=== PATIENT | female | born 1990 | race African-American/Black ===

== ENCOUNTER → 2017-03-25 | Outpatient (CLI) | payer OTHER ==
[2015-02-24 13:10] VITALS: BP 107/62
--- NOTE | 2017-03-25 15:49 | RAD ---
Pelvic ultrasound, 03/25/2017: History: Right lower quadrant pain Transabdominal and transvaginal scans were obtained. The uterus measures 7.4 x 5.5 x 4.0 cm. A normal central uterine echo is present, measuring 5 mm in AP dimension. The myometrial echo pattern is mildly heterogeneous. No discrete mass is seen. The ovaries are of normal size. They contain small follicular cysts. Blood flow is present in both ovaries. No adnexal mass is evident. No free fluid is identified in the pelvis. IMPRESSION: No significant abnormality is detected.
== END | disposition home or self-care (01) ==
LOC: US 15:01
PROVIDERS: ATTEND Obstetrics & Gynecology
DX: R10.31 Right lower quadrant pain (principal)
CPT/HCPCS: 76830; 76856

== ENCOUNTER 2017-10-10 13:44 | Emergency (ER) | payer OTHER ==
[~2017-10-10] VITALS: Ht 157.5 cm; Wt 72.6 kg
[2017-10-10 13:52] VITALS: BP 153/76
[2017-10-10] MEDS ORDERED: HYDROcodone/APAP 5/325MG 1 TAB TABLET PO ONE (14:00)
[2017-10-10] MEDS ORDERED: AMOX1TAB11 PO (14:09)
[2017-10-10] MEDS ORDERED: TRAM50TA PO (14:09)
--- NOTE | 2017-10-10 14:09 | PHYS DOC ---
Past Medical History Past Medical History: No Pertinent History Past Surgical History: Alcohol Use: None Drug Use: None Adult General Chief Complaint Chief Complaint: HEADACHE HPI HPI Patient is a 26 year old female presents the ED complaining of sinus headache 2 days. Describes the headache as sharp. Rates the headache as 9 out of 10. States same symptoms as previous sinus infection symptoms. Associated symptoms include rhinorrhea, sneezing, cough. Denies worst headache of life, neck pain, nausea/vomiting, abdominal pain, chest pain, shortness of breath, fever, or rash. Review of Systems Review of Systems Constitutional: Denies fever or chills [] Eyes: Denies change in visual acuity, redness, or eye pain [] HENT: Complains of congestion. Denies sore throat [] Respiratory: Complains of cough. Denies shortness of breath [] Cardiovascular: No additional information not addressed in HPI [] GI: Denies abdominal pain, nausea, vomiting, bloody stools or diarrhea [] : Denies dysuria or hematuria [] Musculoskeletal: Denies back pain or joint pain [] Integument: Denies rash or skin lesions [] Neurologic: Complains of headache. Denies focal weakness or sensory changes [] Endocrine: Denies polyuria or polydipsia [] All other systems were reviewed and found to be within normal limits, except as documented in this note. Current Medications Current Medications Current Medications Medications (Trade) Dose Ordered Sig/Alba Start Time Stop Time Status Last Admin Dose Admin Acetaminophen/ Hydrocodone Bitart (Lortab 5/325) 1 tab 1X ONCE 10/10/17 14:00 10/10/17 14:01 DC Allergies Allergies Allergies Coded Allergies Type Severity Reaction Last Updated Verified lidocaine Allergy Severe "heart racing" 02/24/15 Yes Physical Exam Physical Exam Constitutional: Well developed, well nourished, no acute distress, non-toxic appearance. [] HENT: Normocephalic, atraumatic, bilateral external ears normal, MILD MAXILLARY SINUS TENDERNESS. oropharynx moist, no oral exudates, nose normal. [] Eyes: PERRLA, EOMI, conjunctiva normal, no discharge. [] Neck: Normal range of motion, no tenderness, supple, no stridor. [] Cardiovascular:Heart rate regular rhythm, no murmur [] Lungs & Thorax: Bilateral breath sounds clear to auscultation. DRY COUGH[] Abdomen: Bowel sounds normal, soft, no tenderness, no masses, no pulsatile masses. [] Skin: Warm, dry, no erythema, no rash. [] Neurologic: Alert and oriented X 3, normal motor function, normal sensory function, no focal deficits noted. [] Psychologic: Affect normal, judgement normal, mood normal. [] Current Patient Data Vital Signs Vital Signs Date Time Temp Pulse Resp B/P (MAP) Pulse Ox O2 Delivery O2 Flow Rate FiO2 10/10/17 13:52 98.3 96 16 100 Room Air 98.3 EKG EKG [] Radiology/Procedures Radiology/Procedures [] Course & Med Decision Making Course & Med Decision Making Pertinent Labs and Imaging studies reviewed. (See chart for details) []Headache improved. Vitals stable, no acute distress. No focal neural deficits. Will discharge with Augmentin and some analgesics for pain. Discussed symptomatic treatment at home. Discussed follow-up with PCP this week. Discussed reasons to return to the ED. Patient understands and agrees with plan. Dragon Disclaimer Dragon Disclaimer This electronic medical record was generated, in whole or in part, using a voice recognition dictation system. Departure Departure Impression: Primary Impression: Sinusitis Disposition: 01 HOME, SELF-CARE Condition: IMPROVED Referrals: UNKNOWN PCP NAME (PCP) IMELDA LOPEZ MD Patient Instructions: Sinusitis Scripts Amoxicillin/Potassium Clav (AMOX TR-K CLV 875-125 MG TAB) 1 Each Tablet 1 TAB PO BID, #28 TAB Prov: LULA BREWER 10/10/17 Tramadol Hcl (TRAMADOL HCL) 50 Mg Tablet 1 TAB PO PRN Q6HRS, #12 TAB Prov: LULA BREWER 10/10/17 LULA BREWER Oct 10, 2017 14:09
== END 2017-10-10 14:21 | disposition home or self-care (01) ==
LOC: ER 13:44
DX: J32.0 Chronic maxillary sinusitis (principal); Z88.4 Allergy status to anesthetic agent
CPT/HCPCS: 99283

== ENCOUNTER 2019-01-13 11:59 | Emergency (ER) | payer OTHER ==
[~2019-01-13] VITALS: Ht 157.5 cm; Wt 72.6 kg
[~2019-01-13 11:59] MED LIST: AMOX1TAB11 PO; TRAM50TA PO
[2019-01-13] MEDS ORDERED: IV NORMAL SALINE 1000ML BAG 1,000 ML IV ONE (13:45)
[2019-01-13] MEDS ORDERED: MECLIZINE HCL 12.5 MG TABLET. PO ONE (13:45)
[2019-01-13] MEDS ORDERED: ONDANSETRON PF 4 MG/2 ML VIAL. IV ONE (13:45)
[2019-01-13 13:52] LABS: BASO % 1 % (0-3); EOS % 0 % (0-3); HEMATOCRIT 26.9 % (36.0-47.0); HEMOGLOBIN 8.2 g/dL (12.0-15.5); LYMPH % 67 % (24-48); MEAN CORPUSCULAR HEMOGLOBIN 21 pg (25-35); MEAN CORPUSCULAR HGB CONC 31 g/dL (31-37); MEAN CORPUSCULAR VOLUME 68 fL (79-100); MONO # 0.2 x10^3/uL (0.0-1.1); MONO % 5 % (0-9); NEUT # 1.2 x10^3uL (1.8-7.7); NEUT % 27 % (31-73); PLATELET COUNT 273 x10^3/uL (140-400); RED BLOOD COUNT 3.94 x10^6/uL (3.50-5.40); RED CELL DISTRIBUTION WIDTH 17.9 % (11.5-14.5); WHITE BLOOD COUNT 4.4 x10^3/uL (4.0-11.0)
[2019-01-13 13:57] LABS: BILIRUBIN,URINE NEGATIVE (NEG); COLOR,URINE YELLOW; NITRITE,URINE NEGATIVE (NEG); PH,URINE 8.5; PROTEIN,URINE NEGATIVE (NEG-TRACE); UROBILINOGEN,URINE 0.2 mg/dL (0.2 mg/dL)
[2019-01-13 13:58] LABS: CALCIUM 8.7 mg/dL (8.5-10.1); CREATININE 0.9 mg/dL (0.6-1.0); GFR 89.6
[2019-01-13 14:03] LABS: CLARITY,URINE CLEAR
[2019-01-13 14:05] LABS: ALBUMIN 3.5 g/dL (3.4-5.0); ALBUMIN/GLOBULIN RATIO 0.9 (1.0-1.7); MAGNESIUM 2.1 mg/dL (1.8-2.4); TOTAL BILIRUBIN 0.4 mg/dL (0.2-1.0); TOTAL PROTEIN 7.2 g/dL (6.4-8.2)
--- NOTE | 2019-01-13 14:29 | RAD ---
CT HEAD WO CONTRAST Indication: DIZZY, NAUSEA, NO PRIORS Exposure: One or more of the following individualized dose reduction techniques were utilized for this examination: 1. Automated exposure control 2. Adjustment of the mA and/or kV according to patient size 3. Use of iterative reconstruction technique. Findings: No acute intracranial hemorrhage, mass effect, midline shift or abnormal extra-axial fluid collection. Quinones-white matter distinction is intact. The ventricles and sulci are symmetric. The orbits are unremarkable. Partially seen paranasal sinuses are clear. No acute skull abnormality. IMPRESSION: Negative for acute intracranial hemorrhage or mass effect. Further evaluation or follow-up could be obtained with outpatient MR brain as indicated. Electronically signed by: Ady Terrell MD (01/13/2019 2:26 PM) [id number]
[2019-01-13 14:36] LABS: BACTERIA,URINE FEW /HPF (0-FEW); RBC,URINE 0 /HPF (0-2); SQUAMOUS EPITHELIAL CELL,UR FEW /LPF; TRICHOMONAS,URINE PRESENT
[2019-01-13 15:25] LABS: % BASOS 1 % (0-3); % EOS 1 % (0-5); % LYMPHS 52 % (24-48); % MONOS 4 % (0-10); % SEGS 42 % (35-66)
[2019-01-13 15:27] LABS: ANISOCYTOSIS SLIGHT; HYPOCHROMIA MARKED; MICROCYTOSIS MARKED; PLT ESTIMATE ADEQUATE (ADEQUATE); POLYCHROMASIA SLIGHT; TARGET CELLS MANY
--- NOTE | 2019-01-13 15:48 | EKG ---
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
[2019-01-13] MEDS ORDERED: MECL25TA3 PO (16:28)
[2019-01-13] MEDS ORDERED: PRED50TA PO (16:28)
--- NOTE | 2019-01-13 16:29 | PHYS DOC ---
Past Medical History Past Medical History: No Pertinent History Past Surgical History: Alcohol Use: None Drug Use: None Adult General Chief Complaint Chief Complaint: DIZZY/LIGHT HEADED HPI HPI Patient is a 28 year old AA female who presents to the emergency room with complaints of dizziness, nausea, left here ringing, and a sensation of the room spinning since approximately 8:30 this morning. She denies any vision changes, chest pain, wheezing, recent head injury, headache, weakness, difficulty speaking, incoordination, fall, vomiting, or diarrhea. Patient states she had a similar episode to this a month ago, but those symptoms subsided after she went to bed for the evening and woke up the next morning. Patient does report recent chest congestion but denies any cough or shortness of breath. She states she is currently on her menstrual cycle and has been for the last 5 days. She denies any increased heaviness to bleeding, reports a history of iron deficiency anemia. Currently she denies any pain. Review of Systems Review of Systems Constitutional: Denies fever or chills [] Eyes: Denies change in visual acuity, redness, or eye pain [] HENT: Denies nasal congestion or sore throat [] Respiratory: Denies cough or shortness of breath; see HPI[] Cardiovascular: No additional information not addressed in HPI [] GI: Denies abdominal pain, nausea, vomiting, or diarrhea [] : Denies dysuria or hematuria [] Integument: Denies rash or skin lesions [] Neurologic: Denies headache, see HPI Complete systems were reviewed and found to be within normal limits, except as documented in this note. Current Medications Current Medications Current Medications Medications (Trade) Dose Ordered Sig/Alba Start Time Stop Time Status Last Admin Dose Admin Meclizine HCl (Antivert) 25 mg 1X ONCE 01/13/19 13:45 01/13/19 13:46 DC 01/13/19 14:08 25 MG Ondansetron HCl (Zofran) 4 mg 1X ONCE 01/13/19 13:45 01/13/19 13:46 DC 01/13/19 14:08 4 MG Sodium Chloride 1,000 ml @ 1,000 mls/hr 1X ONCE 01/13/19 13:45 01/13/19 14:44 DC 01/13/19 13:15 1,000 MLS/HR Allergies Allergies Allergies Coded Allergies Type Severity Reaction Last Updated Verified lidocaine Allergy Severe "heart racing" 02/24/15 Yes tramadol Allergy Intermediate 01/13/19 Yes shrimp Allergy Unknown 01/13/19 Yes Physical Exam Physical Exam Constitutional: Well developed, well nourished, no acute distress, non-toxic appearance. [] HENT: Normocephalic, atraumatic, bilateral external ears normal, bilateral TMs normal, oropharynx moist, no oral exudates, nose normal. [] Eyes: PERRLA, EOMI, conjunctiva normal, no discharge; lateral nystagmus to the right noted [] Neck: Normal range of motion, no stridor. [] Cardiovascular:Heart rate regular rhythm, no murmur [] Lungs & Thorax: Bilateral breath sounds clear to auscultation [] Skin: Warm, dry, no erythema, no rash. [] Extremities: No cyanosis, ROM intact, no edema. [] Neurologic: Alert and oriented X 3, normal motor function, normal sensory function, normal finger to nose and heel to lugo testing, clear speech noted, no focal deficits noted. [] Psychologic: Affect normal, judgement normal, mood normal. [] Current Patient Data Vital Signs Vital Signs Date Time Temp Pulse Resp B/P (MAP) Pulse Ox O2 Delivery O2 Flow Rate FiO2 01/13/19 16:30 59 17 100 01/13/19 12:40 98.9 113/67 (82) Room Air 98.9 Lab Values Laboratory Tests Test 01/13/19 12:35 01/13/19 12:45 01/13/19 13:49 Urine Collection Type Unknown Urine Color Yellow Urine Clarity Clear Urine pH 8.5 Urine Specific [place] 1.020 Urine Protein Negative mg/dL (NEG-TRACE) Urine Glucose (UA) Negative mg/dL (NEG) Urine Ketones (Stick) Negative mg/dL (NEG) Urine Blood Negative (NEG) Urine Nitrite Negative (NEG) Urine Bilirubin Negative (NEG) Urine Urobilinogen Dipstick 0.2 mg/dL (0.2 mg/dL) Urine Leukocyte Esterase Negative (NEG) Urine RBC 0 /HPF (0-2) Urine WBC 1-4 /HPF (0-4) Urine Squamous Epithelial Cells Few /LPF Urine Bacteria Few /HPF (0-FEW) Urine Mucus Slight /LPF Urine Trichomonas Present White Blood Count 4.4 x10^3/uL (4.0-11.0) Red Blood Count 3.94 x10^6/uL (3.50-5.40) Hemoglobin 8.2 g/dL (12.0-15.5) L Hematocrit 26.9 % (36.0-47.0) L Mean Corpuscular Volume 68 fL (79-100) L Mean Corpuscular Hemoglobin 21 pg (25-35) L Mean Corpuscular Hemoglobin Concent 31 g/dL (31-37) Red Cell Distribution Width 17.9 % (11.5-14.5) H Platelet Count 273 x10^3/uL (140-400) Neutrophils (%) (Auto) 27 % (31-73) L Lymphocytes (%) (Auto) 67 % (24-48) H Monocytes (%) (Auto) 5 % (0-9) Eosinophils (%) (Auto) 0 % (0-3) Basophils (%) (Auto) 1 % (0-3) Neutrophils # (Auto) 1.2 x10^3uL (1.8-7.7) L Lymphocytes # (Auto) 3.0 x10^3/uL (1.0-4.8) Monocytes # (Auto) 0.2 x10^3/uL (0.0-1.1) Eosinophils # (Auto) 0.0 x10^3/uL (0.0-0.7) Basophils # (Auto) 0.0 x10^3/uL (0.0-0.2) Segmented Neutrophils % 42 % (35-66) Lymphocytes % 52 % (24-48) H Monocytes % 4 % (0-10) Eosinophils % 1 % (0-5) Basophils % 1 % (0-3) Platelet Estimate Adequate (ADEQUATE) Polychromasia Slight Hypochromasia Marked Anisocytosis Slight Microcytosis Marked Target Cells Many Sodium Level 143 mmol/L (136-145) Potassium Level 4.0 mmol/L (3.5-5.1) Chloride Level 106 mmol/L (98-107) Carbon Dioxide Level 27 mmol/L (21-32) Anion Gap 10 (6-14) Blood Urea Nitrogen 17 mg/dL (7-20) Creatinine 0.9 mg/dL (0.6-1.0) Estimated GFR (Cockcroft-Gault) 89.6 BUN/Creatinine Ratio 19 (6-20) Glucose Level 88 mg/dL (70-99) Calcium Level 8.7 mg/dL (8.5-10.1) Magnesium Level 2.1 mg/dL (1.8-2.4) Total Bilirubin 0.4 mg/dL (0.2-1.0) Aspartate Amino Transferase (AST) 16 U/L (15-37) Alanine Aminotransferase (ALT) 18 U/L (14-59) Alkaline Phosphatase 54 U/L (46-116) Total Protein 7.2 g/dL (6.4-8.2) Albumin 3.5 g/dL (3.4-5.0) Albumin/Globulin Ratio 0.9 (1.0-1.7) L POC Urine HCG, Qualitative Hcg negative (Negative) Laboratory Tests 01/13/19 12:45 Laboratory Tests 01/13/19 12:45 EKG EKG 1327- SR rate 63 indeterminate axis, NO STEMI read by Dr. Montero Radiology/Procedures Radiology/Procedures Orthostatic blood pressures negative[] PROCEDURE: CT HEAD WO CONTRAST CT HEAD WO CONTRAST Indication: DIZZY, NAUSEA, NO PRIORS Exposure: One or more of the following individualized dose reduction techniques were utilized for this examination: 1. Automated exposure control 2. Adjustment of the mA and/or kV according to patient size 3. Use of iterative reconstruction technique. Findings: No acute intracranial hemorrhage, mass effect, midline shift or abnormal extra-axial fluid collection. Quinones-white matter distinction is intact. The ventricles and sulci are symmetric. The orbits are unremarkable. Partially seen paranasal sinuses are clear. No acute skull abnormality. IMPRESSION: Negative for acute intracranial hemorrhage or mass effect. Further evaluation or follow-up could be obtained with outpatient MR brain as indicated. Course & Med Decision Making Course & Med Decision Making Pertinent Labs and Imaging studies reviewed. (See chart for details) Dx: postural dizziness, ringing in left ear, anemia CT head was negative for any acute findings, CBC Hgb 8.2 Hct 26.9, CMP unremarkable, UA unremarkable. Pt was given 25 mg of meclizine, 1L NS, and 4 mg of Zofran in the ER, denies feeling dizzy after interventions, also denies continued ringing in ear. Prescription written for meclizine and 5 day burst of prednisone. Pt instructed to follow up with PCP in 1-2 days, return to ER if symptoms worsen. Patient verbalized an understanding of home care, medications, follow-up, and return to ED instructions and was in agreement with the plan of care. [] Dragon Disclaimer Dragon Disclaimer This electronic medical record was generated, in whole or in part, using a voice recognition dictation system. Departure Departure Impression: Primary Impression: Postural dizziness Additional Impressions: Ringing in left ear Anemia Disposition: HOME, SELF-CARE Condition: STABLE Referrals: NO PCP (PCP) Patient Instructions: Dizziness, [id number] Additional Instructions: Fill prescriptions and use as directed. Follow up with your primary care doctor in 1-2 days for re-evaluation. Return to the ER if symptoms worsen. Scripts Meclizine Hcl (MECLIZINE HCL) 25 Mg Tablet 1 TAB PO PRN TID PRN for DIZZINESS for 10 Days, #30 TAB 0 Refills Prov: MALGORZATA FRANCISCO APRN 01/13/19 Prednisone (PREDNISONE) 50 Mg Tablet 1 TAB PO DAILY, #5 TAB 0 Refills Prov: MALGORZATA FRANCISCO APRN 01/13/19 Problem Qualifiers Additional Impressions: Anemia Anemia type: iron deficiency Iron deficiency anemia type: unspecified iron deficiency Qualified Codes: D50.9 - Iron deficiency anemia, unspecified MALGORZATA FRANCISCO APRN Jan 13, 2019 16:29
[2019-01-13 16:30] VITALS: BP 110/72
== END 2019-01-13 16:58 | disposition home or self-care (01) ==
LOC: ER 11:59
DX: D50.9 Iron deficiency anemia, unspecified (principal); R42 Dizziness and giddiness; R11.0 Nausea; Z98.890 Other specified postprocedural states; Z88.5 Allergy status to narcotic agent; Z88.4 Allergy status to anesthetic agent; Z91.013 Allergy to seafood
CPT/HCPCS: 36415; 70450; 80053; 81001; 81025; 83735; 85007; 85025; 93005; 96361; 96374; 99284; J2405; J7030; J8597

== ENCOUNTER 2019-02-21 23:56 | Emergency (ER) | payer OTHER ==
[~2019-02-21] VITALS: Ht 160 cm; Wt 63.5 kg
[~2019-02-21 23:56] MED LIST changes: +MECL25TA3 PO; +PRED50TA PO
[2019-02-22] MEDS ORDERED: LEVE500T56 PO (02:22)
--- NOTE | 2019-02-22 02:27 | PHYS DOC ---
Past Medical History Past Medical History: No Pertinent History Past Surgical History: Alcohol Use: None Drug Use: None Adult General Chief Complaint Chief Complaint: SEIZURE HPI HPI Patient is a 28 year old female who presents to the ED after a seizure. Pt is in the room with her mother. Her boyfriend is on the phone and he witnessed the seizure. He states she has had 3 seizures over the last couple days. The most recent event took place at 10pm this evening. Her boyfriend states that she stopped talking, breathing, her eyes teared and her body tightened up. During the first event, her legs were shaking. She states she feels funny before it happens. She remembers the first 2 events. After the seizure, she doses off, gets a stomach pain and states her entire body hurts and she feels like she just finished running. There is no apparent trigger. Denies loss of bowel and bladder. Her boyfriend states the event lasted 10 minutes, her eyes were closed and she wasn't talking. She complains of a left sided WHYTE. PMHx of vertigo. Not on any medications. Never had seizures before a couple days ago. Denies alcohol, tobacco, or illicit drug use. [] she went to [facility] on 02/20 for seizure paparently at that time had ct scan cta with contrast negative according to patient and was advised to f/u with neurolgoy at upon return to . currently no fever. does have left side headache not sudden onset Review of Systems Review of Systems Constitutional: Denies fever or chills [] Eyes: Denies change in visual acuity, redness, or eye pain [] HENT: Denies nasal congestion or sore throat [] Respiratory: Denies cough or shortness of breath [] Cardiovascular: No additional information not addressed in HPI [] GI: Denies nausea, vomiting, bloody stools or diarrhea. Abdominal pain. [] : Denies dysuria or hematuria [] Musculoskeletal: Denies back pain or joint pain. Body aches [] Integument: Denies rash or skin lesions [] Neurologic: Denies headache, focal weakness or sensory changes [] Endocrine: Denies polyuria or polydipsia [] All other systems were reviewed and found to be within normal limits, except as documented in this note. Current Medications Current Medications Current Medications Medications (Trade) Dose Ordered Sig/Alba Start Time Stop Time Status Last Admin Dose Admin Levetiracetam 1000 mg/Dextrose 110 ml @ 440 mls/hr 1X ONCE 02/22/19 02:30 02/22/19 02:44 DC Sodium Chloride 1,000 ml @ 1,000 mls/hr 1X ONCE 02/22/19 02:30 02/22/19 03:29 DC Allergies Allergies Allergies Coded Allergies Type Severity Reaction Last Updated Verified lidocaine Allergy Severe "heart racing" 02/24/15 Yes tramadol Allergy Intermediate 01/13/19 Yes shrimp Allergy Unknown 01/13/19 Yes Physical Exam Physical Exam Constitutional: Well developed, well nourished, no acute distress, non-toxic appearance. [] HENT: Normocephalic, atraumatic, bilateral external ears normal, oropharynx moist, no oral exudates, nose normal. [] Eyes: PERRLA, EOMI, conjunctiva normal, no discharge. [] Neck: Normal range of motion, no tenderness, supple, no stridor. [] Cardiovascular:Heart rate regular rhythm, no murmur [] Lungs & Thorax: Bilateral breath sounds clear to auscultation [] Abdomen: Bowel sounds normal, soft, no tenderness, no masses, no pulsatile masses. [] Skin: Warm, dry, no erythema, no rash. [] Back: No tenderness, no CVA tenderness. [] Extremities: No tenderness, no cyanosis, no clubbing, ROM intact, no edema. [] Neurologic: Alert and oriented X 3, normal motor function, normal sensory f unction, no focal deficits noted. []No nystagmus speech normal Psychologic: Affect normal, judgement normal, mood normal. [] Current Patient Data Vital Signs Vital Signs Date Time Temp Pulse Resp B/P (MAP) Pulse Ox O2 Delivery O2 Flow Rate FiO2 02/22/19 02:53 72 14 100 02/22/19 00:10 98.0 100/72 (81) Room Air 98.0 Lab Values Laboratory Tests Test 02/22/19 00:12 02/22/19 00:29 02/22/19 02:48 Urine Collection Type Unknown Urine Color Yellow Urine Clarity Clear Urine pH 6.5 Urine Specific [place] 1.025 Urine Protein Negative mg/dL (NEG-TRACE) Urine Glucose (UA) Negative mg/dL (NEG) Urine Ketones (Stick) Negative mg/dL (NEG) Urine Blood Negative (NEG) Urine Nitrite Negative (NEG) Urine Bilirubin Negative (NEG) Urine Urobilinogen Dipstick 1.0 mg/dL (0.2 mg/dL) Urine Leukocyte Esterase Trace (NEG) Urine RBC Occ /HPF (0-2) Urine WBC 1-4 /HPF (0-4) Urine Squamous Epithelial Cells Mod /LPF Urine Bacteria Few /HPF (0-FEW) Urine Mucus Mod /LPF POC Urine HCG, Qualitative Hcg negative (Negative) White Blood Count 5.5 x10^3/uL (4.0-11.0) Red Blood Count 3.60 x10^6/uL (3.50-5.40) Hemoglobin 7.5 g/dL (12.0-15.5) L Hematocrit 23.8 % (36.0-47.0) L Mean Corpuscular Volume 66 fL (79-100) L Mean Corpuscular Hemoglobin 21 pg (25-35) L Mean Corpuscular Hemoglobin Concent 32 g/dL (31-37) Red Cell Distribution Width 17.7 % (11.5-14.5) H Platelet Count 258 x10^3/uL (140-400) Neutrophils (%) (Auto) 43 % (31-73) Lymphocytes (%) (Auto) 48 % (24-48) Monocytes (%) (Auto) 8 % (0-9) Eosinophils (%) (Auto) 1 % (0-3) Basophils (%) (Auto) 0 % (0-3) Neutrophils # (Auto) 2.4 x10^3uL (1.8-7.7) Lymphocytes # (Auto) 2.6 x10^3/uL (1.0-4.8) Monocytes # (Auto) 0.4 x10^3/uL (0.0-1.1) Eosinophils # (Auto) 0.0 x10^3/uL (0.0-0.7) Basophils # (Auto) 0.0 x10^3/uL (0.0-0.2) Platelet Estimate Adequate (ADEQUATE) Hypochromasia Slight Poikilocytosis Slight Microcytosis Mod Target Cells Few Ovalocytes Occ Stomatocytes Occ Sodium Level 139 mmol/L (136-145) Potassium Level 3.6 mmol/L (3.5-5.1) Chloride Level 104 mmol/L (98-107) Carbon Dioxide Level 27 mmol/L (21-32) Anion Gap 8 (6-14) Blood Urea Nitrogen 16 mg/dL (7-20) Creatinine 1.0 mg/dL (0.6-1.0) Estimated GFR (Cockcroft-Gault) 79.3 BUN/Creatinine Ratio 16 (6-20) Glucose Level 100 mg/dL (70-99) H Calcium Level 8.4 mg/dL (8.5-10.1) L Total Bilirubin 0.4 mg/dL (0.2-1.0) Aspartate Amino Transferase (AST) 16 U/L (15-37) Alanine Aminotransferase (ALT) 15 U/L (14-59) Alkaline Phosphatase 40 U/L (46-116) L Total Protein 6.5 g/dL (6.4-8.2) Albumin 3.3 g/dL (3.4-5.0) L Albumin/Globulin Ratio 1.0 (1.0-1.7) Laboratory Tests 02/22/19 02:48 Laboratory Tests 02/22/19 02:48 Noted the CBC the hemoglobin has been basically that low before EKG EKG [] Radiology/Procedures Radiology/Procedures [] Course & Med Decision Making Course & Med Decision Making Pertinent Labs and Imaging studies reviewed. (See chart for details) []pt declined the iv keppra she was given rx for keppra given second or third seizure in three days. given f/u number for neurology. had brain imaging at outside hospital reportedly negative per the patient. neuro intact. uncler etiology of seizure but this point in time I think the patient is stable for outpatient management she is with her mother and instructed her not to drive she should use seizure precautions don't swim or take a bath alone etc. etc. follow up with neurology as soon as possible encouraged to take the antiepileptic medication to decrease the risk of us another seizure. Dragon Disclaimer Dragon Disclaimer This electronic medical record was generated, in whole or in part, using a voice recognition dictation system. Departure Departure Impression: Primary Impression: Seizure Disposition: 01 HOME, SELF-CARE Condition: STABLE Referrals: LORI GALEANO MD (PCP) Scripts Levetiracetam (KEPPRA) 500 Mg Tablet 1 TAB PO BID, #60 TAB 0 Refills Prov: MANNY HOLLOWAY MD 02/22/19 MANNY HOLLOWAY MD Feb 22, 2019 02:27
[2019-02-22] MEDS ORDERED: levETIRAcetam 1,000 MG in IV DEXTROSE 5% 100ML 100 ML IV ONE (02:30)
[2019-02-22] MEDS ORDERED: IV NORMAL SALINE 1000ML BAG 1,000 ML IV ONE (02:30)
[2019-02-22 02:32] LABS: BILIRUBIN,URINE NEGATIVE (NEG); CLARITY,URINE CLEAR; COLOR,URINE YELLOW; NITRITE,URINE NEGATIVE (NEG); PH,URINE 6.5; PROTEIN,URINE NEGATIVE (NEG-TRACE)
[2019-02-22 02:47] LABS: BACTERIA,URINE FEW /HPF (0-FEW); RBC,URINE OCC /HPF (0-2); SQUAMOUS EPITHELIAL CELL,UR MOD /LPF
[2019-02-22 02:53] VITALS: BP 95/56
[2019-02-22 03:05] LABS: CALCIUM 8.4 mg/dL (8.5-10.1); GFR 79.3; POTASSIUM 3.6 mmol/L (3.5-5.1)
[2019-02-22 03:11] LABS: ALBUMIN 3.3 g/dL (3.4-5.0); TOTAL BILIRUBIN 0.4 mg/dL (0.2-1.0); TOTAL PROTEIN 6.5 g/dL (6.4-8.2)
[2019-02-22 03:12] LABS: BASO % 0 % (0-3); EOS % 1 % (0-3); HEMATOCRIT 23.8 % (36.0-47.0); HEMOGLOBIN 7.5 g/dL (12.0-15.5); LYMPH # 2.6 x10^3/uL (1.0-4.8); LYMPH % 48 % (24-48); MEAN CORPUSCULAR HEMOGLOBIN 21 pg (25-35); MEAN CORPUSCULAR HGB CONC 32 g/dL (31-37); MEAN CORPUSCULAR VOLUME 66 fL (79-100); MONO # 0.4 x10^3/uL (0.0-1.1); MONO % 8 % (0-9); NEUT # 2.4 x10^3uL (1.8-7.7); NEUT % 43 % (31-73); PLATELET COUNT 258 x10^3/uL (140-400); RED CELL DISTRIBUTION WIDTH 17.7 % (11.5-14.5); WHITE BLOOD COUNT 5.5 x10^3/uL (4.0-11.0)
[2019-02-22 03:21] LABS: HYPOCHROMIA SLIGHT; MICROCYTOSIS MOD; OVALOCYTES OCC; PLT ESTIMATE ADEQUATE (ADEQUATE); POIKILOCYTOSIS SLIGHT; TARGET CELLS FEW
[2019-02-22 03:22] LABS: STOMATOCYTES OCC
== END 2019-02-22 03:42 | disposition home or self-care (01) ==
LOC: ER 23:56
DX: R56.9 Unspecified convulsions (principal); Z88.4 Allergy status to anesthetic agent; Z88.6 Allergy status to analgesic agent; Z91.013 Allergy to seafood
CPT/HCPCS: 36415; 80053; 81001; 81025; 85025; 87086; 99284